=== PATIENT | female | born 1940 ===

== ENCOUNTER 2018-05-15 11:31 | Day surgery (SDC) | payer MEDICARE, MEDICAID ==
[2018-05-15 12:28] VITALS: BMI 31.0
[2018-05-15] MEDS ORDERED: Lactated Ringer's 500 ML IV ONE (13:31)
[2018-05-15] MEDS ORDERED: Propofol 10 mg/ml Inj (20 ML) ONE ×2 (13:35→13:46)
[2018-05-15] MEDS ORDERED: Lidocaine Hydrochloride 5 ML INJ ONE (13:35)
[2018-05-15] MEDS ORDERED: Midazolam 2 MG/2 ML VIAL ONE (13:43)
[2018-05-15 14:01] VITALS: TEMP 98.2
[2018-05-15 15:04] VITALS: BP 123/77; PULSE 88; RESP 12; O2SAT 100
== END 2018-05-15 15:00 | disposition home or self-care (01) ==
LOC: C.ENDO 11:31
PROVIDERS: ATTEND Internal Medicine Gastroenterology
DX: K21.0 Gastro-esophageal reflux disease with esophagitis (principal); K44.9 Diaphragmatic hernia without obstruction or gangrene; K29.70 Gastritis, unspecified, without bleeding; J45.909 Unspecified asthma, uncomplicated; E03.9 Hypothyroidism, unspecified
CPT/HCPCS: 43239; 88305; 88312; 88313; 88342; J2250; J2704; J7120